=== PATIENT | male | born 1965 | race Caucasian/White ===

== ENCOUNTER 2019-07-23 18:42 | Emergency (ER) | payer MEDICAID ==
[~2019-07-23] VITALS: Ht 170.2 cm; Wt 68.0 kg
[2019-07-23 18:44] VITALS: BP 154/100
[2019-07-23] MEDS ORDERED: KETOROLAC 30 MG/ML VIAL IM ONE (20:45)
[2019-07-23 20:54] VITALS: BP 147/94
== END 2019-07-23 20:53 | disposition home or self-care (01) ==
LOC: MED 18:42
DX: S22.32XB Fracture of one rib, left side, initial encounter for open fracture (principal); R07.81 Pleurodynia; R07.89 Other chest pain; R56.9 Unspecified convulsions; F17.210 Nicotine dependence, cigarettes, uncomplicated; I10 Essential (primary) hypertension; J45.909 Unspecified asthma, uncomplicated; Z88.0 Allergy status to penicillin; Z88.2 Allergy status to sulfonamides
CPT/HCPCS: 71045; 96372; 99283; J1885; Q0092

== ENCOUNTER 2019-11-27 17:27 | Emergency (ER) | payer MEDICAID, OTHER ==
[~2019-11-27] VITALS: Ht 167.6 cm; Wt 56.7 kg
[2019-11-27 17:27] VITALS: BP 104/72
--- NOTE | 2019-11-27 17:27 | NUR ---
Pt bib by Nick LION and placed in chair A.
--- NOTE | 2019-11-27 17:30 | NUR ---
54/M [facility] for medical clearance/pre-book. Pt reports having hx asthma, htn, seizure but has been out of medications for months. Pt denies pain. Pt noted with a productive hacking cough. Pt states "I've had this cough all my life." Pt denies any fever or chills. Denies being around anyone positive for COVID. AOX4, clear speech. Speaking in full clear sentences. Denies SOB. Respirations even and unlabored. O2 89% on room air. RR 18. Pt noted with wheezing and diminished breath sounds. Dr. Ruggiero made aware of patient's oxygen saturation.
[2019-11-27] MEDS ORDERED: ALBUTEROL SULFATE/IPRATROPIU 3 ML SOL IH ONE (17:35)
--- NOTE | 2019-11-27 17:39 | NUR ---
PT TAKEN TO BED 4. ACCOMPANIED BY [place] [employer] OFFICER.
--- NOTE | 2019-11-27 17:44 | NUR ---
RT at bedside providing breathing tx.
[2019-11-27 17:52] VITALS: BP 104/72
--- NOTE | 2019-11-27 17:52 | NUR ---
Patient discharged with v/s stable in custody of [facility]. Written and verbal after care instructions given and explained. Prebook form given to officer Peterson. Rx of Albuterol given.
== END 2019-11-27 17:52 ==
LOC: MED 17:27
DX: J45.909 Unspecified asthma, uncomplicated (principal); I10 Essential (primary) hypertension; F17.200 Nicotine dependence, unspecified, uncomplicated; Z71.6 Tobacco abuse counseling; Z76.0 Encounter for issue of repeat prescription; Z02.89 Encounter for other administrative examinations; Z88.0 Allergy status to penicillin; Z88.2 Allergy status to sulfonamides
CPT/HCPCS: 94640; 99283

== ENCOUNTER 2020-01-07 09:45 | Emergency (ER) | payer OTHER ==
[~2020-01-07] VITALS: Ht 167.6 cm; Wt 59.0 kg
[2020-01-07 09:51] VITALS: BP 132/83
--- NOTE | 2020-01-07 10:00 | NUR ---
PT C/O LEFT ANKLE PAIN RADIATING TO POSTERIOR OF THE ANKLE INTEMITTENTLY FOR 3 MONS, AND HAVING NUMBNESS SENSATION TODAY EXACERBATED BY WALKING. DARSAL PULSE +2, CAP REFILLS <3 S ON LEFT TOENAILS. PT DENIES TRAUMA OR INJURY TO THE LEFT ANKLE OR FEET. NO EDEMA, ERYTHEMA, OR DEFORMITY NOTICED ON LEFT ANKLE OR FOOT.
[2020-01-07] MEDS ORDERED: GABAPENTIN 300 MG CAP PO ONE (10:05)
--- NOTE | 2020-01-07 10:16 | NUR ---
XRAY IS AT BEDSIDE.
--- NOTE | 2020-01-07 10:36 | NUR ---
URINE COLLECTED AND SENT TO THE LAB.
[2020-01-07 11:01] LABS: BARBITURATE, URINE NEGATIVE ng/ml (NEG <=200); BENZODIAZEPINE, URINE NEGATIVE ng/mL (NEG <=200); CANNABINOID, URINE NEGATIVE ng/mL (NEG <=50); COCAINE, URINE NEGATIVE ng/mL (NEG <=300); OPIATE, URINE NEGATIVE ng/mL (NEG <=2000); PHENCYCLIDINE SCREEN,URINE NEGATIVE ng/mL (NEG <=25)
[2020-01-07 12:01] VITALS: BP 121/81
--- NOTE | 2020-01-07 12:01 | NUR ---
Patient discharged with v/s stable. Written and verbal after care instructions given and explained. Patient alert, oriented and verbalized understanding of instructions. Ambulatory with steady gait. All questions addressed prior to discharge. ID band removed. Patient advised to follow up with PMD. Rx of MOTRIN AND GABAPENTIN given. Patient educated on indication of medication including possible reaction and side effects. Opportunity to ask questions provided and answered.
== END 2020-01-07 12:01 | disposition home or self-care (01) ==
LOC: MED 09:45
DX: M25.572 Pain in left ankle and joints of left foot (principal); I73.9 Peripheral vascular disease, unspecified; I10 Essential (primary) hypertension; J45.909 Unspecified asthma, uncomplicated; R56.9 Unspecified convulsions; Z88.0 Allergy status to penicillin; Z88.2 Allergy status to sulfonamides
CPT/HCPCS: 73610; 73630; 80305; 99284

== ENCOUNTER 2020-01-27 20:01 | Emergency (ER) | payer OTHER ==
[~2020-01-27] VITALS: Ht 167.6 cm; Wt 59.0 kg
[2020-01-27 20:10] VITALS: BP 135/94
[2020-01-27 20:47] LABS: BASOPHILS # (AUTO) 0.1 K/uL (0.00-0.22); BASOPHILS % (AUTO) 1.1 % (0.0-2.0); EOSINOPHILS # (AUTO) 0.3 K/uL (0-0.4); HEMATOCRIT 42.6 % (36-52); HEMOGLOBIN 14.5 g/dL (12.0-18.0); LYMPHOCYTES # (AUTO) 2.4 K/uL (2.0-11.5); MEAN CORPUSCULAR HEMOGLOBIN 32 pg (27-31); MEAN CORPUSCULAR HGB CONC 34 g/dL (33-37); MEAN CORPUSCULAR VOLUME 93.6 fL (80-94); MONOCYTES # (AUTO) 0.7 K/uL (0.8-1.0); MONOCYTES % (AUTO) 8.3 % (1.7-9.3); NEUTROPHILS # (AUTO) 4.5 K/uL (1.8-7.7); NEUTROPHILS % (AUTO) 56.6 % (42.2-75.2); PLATELET COUNT (AUTO) 263 K/uL (140-450); RED BLOOD CELL COUNT(AUTO) 4.55 MIL/uL (4.20-6.10); RED CELL DISTRIBUTION WIDTH 13.5 % (11.6-13.7); WHITE BLOOD COUNT (AUTO) 7.9 K/uL (4.8-10.8)
[2020-01-27 20:59] LABS: PROTHROMBIN TIME 9.7 secs (10.8-13.4)
[2020-01-27 21:03] LABS: ALBUMIN 3.1 g/dL (3.4-5.0); ANION GAP 12.5 (8-16); CARBON DIOXIDE 27.9 mmol/L (21-32); CREATININE 0.7 mg/dL (0.6-1.3); POTASSIUM 4.4 mmol/L (3.5-5.1); TOTAL BILIRUBIN 0.2 mg/dL (0.0-1.0)
[2020-01-27] MEDS: HYDROcodone/APAP 5/325 MG 1 TAB TAB PO ONE (23:31)
[2020-01-27 23:34] VITALS: BP 132/84
== END 2020-01-27 23:34 | disposition home or self-care (01) ==
LOC: MED 20:01
DX: I73.9 Peripheral vascular disease, unspecified (principal); F17.210 Nicotine dependence, cigarettes, uncomplicated; I10 Essential (primary) hypertension; J45.909 Unspecified asthma, uncomplicated; R56.9 Unspecified convulsions; Z88.0 Allergy status to penicillin; Z88.2 Allergy status to sulfonamides
CPT/HCPCS: 36415; 73706; 80053; 85025; 85610; 93971; 99285; Q0092; Q9967

== ENCOUNTER 2020-01-30 16:54 | Emergency (ER) | payer OTHER ==
[~2020-01-30] VITALS: Ht 167.6 cm; Wt 58.1 kg
[2020-01-30 17:06] VITALS: BP 132/90
--- NOTE | 2020-01-30 17:10 | NUR ---
PT C/O LEFT LOWER LEG PAIN RADIATING TO LEFT FOOT WITH +2 EDEMA, ERYTHEMA, AND WARMNESS TO TOUCH. PT WAS SEEN HERE ON 01/27/2020 AND DX WITH PVD. PT STATES THE EDEMA AND PAIN IS GETTING WORSE. PT AMBULATES WITH LIMPPING GAIT. LEFT DORSAL PAUSE IS WEAK TO PALPATION. FEBRILE UPON TRIAGE WITH 100.7 TEMPORAL TEMP. REPORTS MOIST COUGH AND STATES THAT IS LIKE HIS NORMAL SMOKING COUGH.
--- NOTE | 2020-01-30 17:12 | NUR ---
DR. TAMEZ IS EVALUATING PT IN THE TRIAGE ROOM DUE TO NO AVAILABLE ROOM AT THIS TIME.
--- NOTE | 2020-01-30 17:25 | NUR ---
PATIENT ELOPED FROM FACILITY. DISCHARGE INSTRUCTIONS NOT GIVEN TO PATIENT. DR. TAMEZ NOTIFIED.
== END 2020-01-30 17:25 | disposition left against medical advice (07) ==
LOC: MED 16:54
DX: R60.0 Localized edema (principal); J45.909 Unspecified asthma, uncomplicated; I10 Essential (primary) hypertension; Z88.0 Allergy status to penicillin; Z88.2 Allergy status to sulfonamides
CPT/HCPCS: 99281

== ENCOUNTER 2020-02-05 05:46 | Emergency (ER) | payer OTHER ==
[~2020-02-05] VITALS: Ht 167.6 cm; Wt 77.1 kg
--- NOTE | 2020-02-05 05:47 | NUR ---
PT TAKEN TO BED 11 VIA GURNEY. SHNAE AT BEDSIDE.
--- NOTE | 2020-02-05 05:47 | NUR ---
PT BIBA TO BED 11.
[2020-02-05 05:48] VITALS: BP 145/98
--- NOTE | 2020-02-05 05:52 | NUR ---
54 Y/O MALE BIBA FOR C/O "SEVERE" NON-RADIATING 10/10 LLE pain and numbness x 2 weeks. PT STATES, "I HAVE AN OCCLUSION AND SURGERY IS SCHEDULED FOR FEBRUARY 09 BUT I CANNOT WAIT". PEDAL PULSES WERE BILATERALLY WEAK +1. SKIN WAS COOL AND DRY TO TOUCH. PT WAS A&OX4, HE WAS CALM AND PLEASANT. PT UNABLE TO AMBULATE HAS UNSTEADY GAIT D/T PAIN. CAP REFILL >3 SEC ON LLE. 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 MEDHX: Asthma, HTN, Epilepsy, PVD ALLX: PCN & SULFA
--- NOTE | 2020-02-05 05:55 | NUR ---
ER MD MIN AT BEDSIDE EVALUATING PT.
--- NOTE | 2020-02-05 06:00 | NUR ---
Respiratory intervention initiated. Patient tolerating well.
[2020-02-05] MEDS ORDERED: predniSONE 20 MG TAB PO ONE (06:05)
[2020-02-05] MEDS ORDERED: MORPHINE SULFATE 4 MG/ML SYR IM ONE (06:05)
[2020-02-05] MEDS ORDERED: IPRATROPIUM 0.02% 0.5 MG/2.5 ML NEBU INH ONE (06:05)
[2020-02-05] MEDS ORDERED: ALBUTEROL 0.083% 2.5 MG/3 ML NEBU INH ONE (06:05)
--- NOTE | 2020-02-05 06:43 | NUR ---
ER MD MIN AT BEDSIDE RE-EVALUATING PT.
[2020-02-05 06:58] VITALS: BP 145/98
--- NOTE | 2020-02-05 06:58 | NUR ---
Patient discharged with v/s stable. Written and verbal after care instructions given and explained. Patient alert, oriented and verbalized understanding of instructions. Wheel Chair Assisted with steady gait. All questions addressed prior to discharge. ID band removed. Patient advised to follow up with PMD. Rx of PREDNISONE, NORCO, SIMVASTATIN, ASPIRIN given. Patient educated on indication of medication including possible reaction and side effects. Opportunity to ask questions provided and answered.
== END 2020-02-05 06:58 | disposition home or self-care (01) ==
LOC: MED 05:46
DX: I73.9 Peripheral vascular disease, unspecified (principal); M79.662 Pain in left lower leg; F17.210 Nicotine dependence, cigarettes, uncomplicated; I10 Essential (primary) hypertension; J45.909 Unspecified asthma, uncomplicated; J44.9 Chronic obstructive pulmonary disease, unspecified; R56.9 Unspecified convulsions; Z88.0 Allergy status to penicillin; Z88.2 Allergy status to sulfonamides
CPT/HCPCS: 94640; 96372; 99283; J2270; J7512; J7613; J7644